=== PATIENT | male | born 1995 | race Caucasian/White ===

== ENCOUNTER 2019-10-14 00:43 | Emergency (ER) | payer OTHER, BC, SELFPAY ==
--- NOTE | 2019-10-14 00:48 | ED_ITS ---
HPI - Chest Pain General Chief Complaint: Chest Pain Stated Complaint: CHEST PAIN, HARD TO BREATH Time Seen by Provider: 10/14/19 00:48 History of Present Illness HPI narrative: Otherwise healthy 24-year-old gentleman woke up with severe left- sided chest pain approximately 5:00 p.m. tonight. Went to work and noticed with activity (lifting, twisting, turning, stocking shelves in the grocery store) the pain was worse. It is worse with a deep breath. Notes that he does smoke both marijuana and tobacco. With the pain he describes it as sharp and stabbing not associated with dyspnea nor with diaphoresis. He denies any nausea, vomiting, diarrhea or abdominal pain. He denies any fever or cough. He has never had similar symptoms. Does not describe any significant new activity or increase in his usual physical activity recently Related Data Allergies Allergy/AdvReac Type Severity Reaction Status Date / Time Tetanus Vaccines and Toxoid Allergy Unknown LEG Verified 10/14/19 01:07 [TETANUS VACCINES AND TOXOID] SWELLING Review of Systems Review of Systems Narrative: Remainder of review of systems including constitutional, ENT, cardiovascular, respiratory, GI, , musculoskeletal, skin, neurologic and psychiatric systems reviewed and are unremarkable except as noted in HPI. Patient History Social History Smoking Status: Current every day smoker Smoking Status: Current every day smoker tobacco type: cigarettes Substance Use Type: marijuana Exam Narrative Exam Narrative: General: Healthy appearing, in no acute distress. Able to give a complete and coherent history. Well-nourished well-developed HEENT: Moist mucous membranes, normal sclera with reactive pupils, Neck: No JVD, supple Respiratory: Lungs are clear to auscultation, no wheezing no rales no rhonchi. Full and symmetrical air movement Chest: Mild tenderness along the left sternal border, no neck tenderness with a nemia more lateral mention of the chest wall Cardiac: Regular rate and rhythm no murmurs no bruits Abdomen: Soft nontender good bowel tones, no flank pain Skin: Warm and dry, no rashes Neurologic: Grossly neurologically intact with no obvious asymmetries or abnormalities Extremities: No trauma, well perfused Psych: Cooperative, appropriate insight and affect Initial Vital Signs Initial Vital Signs: Vital Signs Temperature 97.4 F L 10/14/19 00:59 Pulse Rate 66 08/07/20 00:59 Respiratory Rate 20 10/14/19 00:59 Blood Pressure 144/94 H 10/14/19 00:59 Pulse Oximetry 100 10/14/19 00:59 Course Orders Ordered: ED Orders 10/14/19 00:48 EKG-12 Lead Stat 10/14/19 00:56 Complete Blood Count AUTO DIFF Stat Comprehensive Metabolic Panel Stat Lipase Stat Partial Thromboplastin Time Stat Prothrombin Time INR Stat Troponin & CK Cardiac Panel Stat 10/14/19 01:01 XR chest 1V Stat Discontinued Medications Ketorolac Tromethamine (Toradol) 15 mg IV NOW ONE Stop: 10/14/19 01:40 Vital Signs Vital signs: Vital Signs - 8 hr 10/14/19 00:59 10/14/19 01:00 Temperature 97.4 F L Pulse Rate 66 63 Respiratory Rate 20 0 L Blood Pressure 144/94 H Pulse Oximetry 100 98 MDM - Chest Pain Medical Records Data Attestation: I reviewed the patient's medical records. Lab Data Attestation: I reviewed the patient's lab results. Result diagrams: 10/14/19 00:56 10/14/19 00:56 Labs: Lab Results 10/14/19 10/14/19 10/14/19 Range/Units 00:56 00:56 00:56 WBC 14.1 H (4.5-11.0) X10^3/uL RBC 5.00 (4.5-5.9) X10^6/uL Hgb 15.0 (13.5-17.5) g/dL Hct 44.0 (41-53) % MCV 87.8 (80-100) fL MCH 30.1 (26-34) PG MCHC 34.2 (30-36) % RDW 12.7 (11.6-14.8) % Plt Count 338 (150-400) X10^3/uL Neut % (Auto) 64.3 (50-75) % Lymph % (Auto) 25.2 (25-40) % [place] % (Auto) 8.0 (3-14) % Eos % (Auto) 1.9 L (2-4) % Baso % (Auto) 0.6 (0-2) % Neut # (Auto) 9100 H (5920-2618) /uL Lymph # (Auto) 3600 (0921-9212) /uL [place] # (Auto) 1100 H (0-900) /uL Eos # (Auto) 300 (0-450) /uL Baso # (Auto) 100 (0-100) /uL PT 11.0 (10.1-12.7) SECONDS INR 1.0 (0.9-1.3) APTT 34 (26.4-36.2) SECONDS Sodium 139 (137-145) mmol/L Potassium 4.0 (3.4-5.1) mmol/L Chloride 104 (98-107) mmol/L Carbon Dioxide 26 (22-32) mmol/L BUN 18 (9-20) mg/dL Creatinine 0.89 (0.66-1.25) mg/dL Estimated GFR > 60.0 (>60) mL/min BUN/Creatinine Ratio 20.2 (6-22) Glucose 106 H (70-100) mg/dL Calcium 9.9 (8.4-10.2) mg/dL Total Bilirubin 0.5 (0.2-1.3) mg/dL AST 31 (17-59) IU/L ALT 28 (<50) IU/L Alkaline Phosphatase 78 (38-126) U/L Total Creatine Kinase 97 (55-170) U/L CK-MB (CK-2) TNP CK-MB (CK-2) Rel Index TNP Troponin I < 0.012 (0.01-0.034) ng/mL Total Protein 7.8 (6.3-8.2) g/dL Albumin 4.5 (3.5-5.0) g/dL Globulin 3.3 (1.7-4.1) g/dL Albumin/Globulin Ratio 1.4 (1.0-2.8) Lipase 63 (23-300) U/L Imaging Data Chest x-ray: Attestation: I personally reviewed and interpreted this imaging study as follows: My Impression: Poor inspiratory effort, , no pneumothorax normal cardiac silhouette, no obvious infiltrates Possible fullness in the right devin however I suspect that this is related to poor inspiratory effort rather than pathology ECG Data Attestation: I personally reviewed and interpreted this ECG as follows: Interpretation: Sinus rhythm at 74 Normal axis, normal intervals No acute STT wave changes or ischemia MDM Narrative Medical decision making narrative: With 24-year-old gentleman with 8 hours of chest pain worse with a deep breath not completely reproducible with palpation along sternal borders or ribcage. No bruising or contusion. No evidence of acute coronary syndrome pneumothorax or obvious pulmonary infection. The mild central fullness appreciated in the right middle lobe (that likely is due to poor inspiratory effort) has no correlating clinical finding of rhonchi or rales. With the PERC score of 0 pulmonary emboli is far less likely. Most likely diagnosis at this point is musculoskeletal chest pain. He is given an IV dose of Toradol. He is safe for home discharge and encouraged follow-up with his primary care physician Discharge Plan Departure Patient Disposition: Home Clinical Impression: Atypical chest pain Instructions: DI for Atypical Chest Pain Activity Restrictions/Additional Instructions: Thank you for coming in today I found no life-threatening explanation for your chest pain today. There is no evidence of heart attack, collapsed lung, pneumonia or other lung infection, blood clots in your lungs or pancreatitis. I suspect that the pain you are experiencing is musculoskeletal in nature and likely will resolve on its own. You were given a dose of Toradol in the emergency department. Using 400 mg of ibuprofen (2 [id number] pills) and 1 Tylenol every 6 hours can be very helpful in controlling pain. If symptoms change or worsen please feel free to return to the emergency department for further evaluation. Referrals: Jose Luis De Paz MD [Primary Care Provider] -
[2019-10-14 00:59] VITALS: BP 144/94; PULSE 66; RESP 20; TEMP 36.3; O2SAT 100; BMI 30.1
[2019-10-14 01:00] VITALS: PULSE 63; RESP 0; O2SAT 98
--- NOTE | 2019-10-14 01:01 | DI.RAD.S_ITS ---
PROCEDURE: XR CHEST 1V INDICATIONS: chest pain TECHNIQUE: One view of the chest was acquired. COMPARISON: None. FINDINGS: Surgical changes and devices: None. Lungs and pleura: Lungs are clear. No pleural effusions or pneumothorax. Mediastinum: Mediastinal contours appear normal. Heart size is normal. Bones and chest wall: No suspicious bony lesions. Overlying soft tissues appear unremarkable. IMPRESSION: No acute cardiopulmonary disease process. Dictated by: Thi Crawley MD, PhD on 10/14/2019 at 9:03 Approved by: Thi Crawley MD, PhD on 10/14/2019 at 9:03
[2019-10-14 01:10] LABS: Add Manual Diff / Slide Review NO; Basophils Absolute Auto 100 /uL (0-100); Basophils Percent Auto 0.6 % (0-2); Eosinophils Absolute Auto 300 /uL (0-450); Eosinophils Percent Auto 1.9 % (2-4); Lymphocytes Absolute Auto 3600 /uL (1100-4500); Lymphocytes Percent Auto 25.2 % (25-40); Mean Corpuscular HGB Conc 34.2 % (30-36); Mean Corpuscular Hemoglobin 30.1 PG (26-34); Mean Corpuscular Volume 87.8 fL (80-100); Monocytes Absolute Auto 1100 /uL (0-900); Neutrophils Absolute Auto 9100 /uL (1500-7000); Neutrophils Percent Auto 64.3 % (50-75); Platelet Count 338 X10^3/uL (150-400); Red Cell Distribution Width 12.7 % (11.6-14.8); White Blood Cell Count 14.1 X10^3/uL (4.5-11.0)
[2019-10-14 01:14] LABS: PTT Partial Thromboplastin Tim 34 SECONDS (26.4-36.2)
[2019-10-14 01:17] LABS: Alanine Aminotransferase 28 IU/L (<50); Albumin 4.5 g/dL (3.5-5.0); Albumin Globulin Ratio 1.4 (1.0-2.8); Alkaline Phosphatase 78 U/L (38-126); Aspartate Aminotransferase 31 IU/L (17-59); BUN Creatinine Ratio 20.2 (6-22); Bilirubin Total 0.5 mg/dL (0.2-1.3); Blood Urea Nitrogen 18 mg/dL (9-20); Calcium 9.9 mg/dL (8.4-10.2); Carbon Dioxide 26 mmol/L (22-32); Chloride 104 mmol/L (98-107); Creatine Kinase 97 U/L (55-170); Estimated Glomerular Filt Rate > 60.0 mL/min (>60); Globulin 3.3 g/dL (1.7-4.1); Glucose 106 mg/dL (70-100); HEMOLYSIS < 15 (0-50); Lipase 63 U/L (23-300); Sodium 139 mmol/L (137-145); Total Protein 7.8 g/dL (6.3-8.2)
[2019-10-14 01:28] LABS: Troponin I < 0.012 ng/mL (0.01-0.034)
[2019-10-14 01:50] VITALS: BP 136/77; PULSE 62; RESP 20; O2SAT 98
[2019-10-14] MEDS: IBUPROFEN 400 MG TABLET PO (01:58)
[2019-10-14] MEDS: ACETAMINOPHEN 325 MG TABLET PO (01:59)
== END 2019-10-14 02:01 | disposition home or self-care (01) ==
LOC: ED 01:44
PROVIDERS: Emergency Provider Emergency Medicine; Family Provider Family Medicine; PCP Family Medicine
DX: R07.89 Other chest pain (principal); R06.00 Dyspnea, unspecified
CPT/HCPCS: 36415; 71045; 80053; 82550; 83690; 84484; 85025; 85610; 85730; 93005; 99284